=== PATIENT | female | born 1980 | race African-American/Black ===

== ENCOUNTER 2024-12-13 01:18 | Emergency (ER) | payer MEDICAID ==
[~2024-12-13] VITALS: Ht 175.3 cm; Wt 80.0 kg
[2024-12-13 01:29] VITALS: BP 155/100; PULSE 93; RESP 18; TEMP 36.8; O2SAT 100
[2024-12-13 02:41] LABS: HEMOGLOBIN. 9.7 g/dL (12.0-16.0); MEAN CORPUSCULAR HEMOGLOBIN 21.9 pg (28.0-32.0); MEAN CORPUSCULAR HGB CONC 30.4 g/dL (31.0-37.0); MEAN PLATELET VOLUME 8.8 fl (7.4-10.4); PLATELET 204 x1000/uL (130-400); RED BLOOD CELL COUNT 4.45 mill/uL (4.2-5.4); RED CELL DISTRIBUTION WIDTH 24.4 % (11.6-14.6); WHITE BLOOD COUNT 8.2 x1000/uL (4.5-11.0)
[2024-12-13 02:42] LABS: DIFFERENTIAL COMMENT 1
[2024-12-13 03:10] LABS: CHLORIDE 102 mEq/L (98-107); POTASSIUM 3.7 mEq/L (3.5-5.1); SODIUM 140 mEq/L (136-145)
[2024-12-13 03:11] LABS: CALCIUM 9.5 mg/dL (8.7-10.4); CARBON DIOXIDE 29 mEq/L (21-32)
[2024-12-13 03:16] LABS: CREATININE 0.6 mg/dL (0.6-1.0); GLUCOSE 103 mg/dL (70-105); UREA NITROGEN BLOOD 14 mg/dL (9-23)
[2024-12-13 03:18] LABS: ALANINE AMINOTRANSFERASE 20 IU/L (10-49); ALBUMIN 4.3 g/dL (3.2-4.8); ASPARTATE AMINOTRANSFERASE 31 IU/L (<34); BILIRUBIN TOTAL 0.3 mg/dL (0.1-1.0); PROTEIN TOTAL 7.4 g/dL (6.0-8.3)
[2024-12-13 03:28] LABS: HCG SCREEN NEGATIVE
[2024-12-13] MEDS: MAGNESIUM/ALUMINUM HYDROXIDE/SIMETHICONE 30ML UDC PO STA (03:35)
[2024-12-13] MEDS: FAMOTIDINE 20MG TABLET PO ONE (03:36)
[2024-12-13] MEDS: ONDANSETRON 4MG ODT PO STA (03:36)
[2024-12-13] MEDS: TRAMADOL 50MG TABLET PO ONE (03:36)
[2024-12-13 04:00] LABS: BILIRUBIN DIRECT < 0.1 mg/dL (<=3.0)
[2024-12-13] MEDS ORDERED: FAMO-135 MT (04:08)
[2024-12-13] MEDS: HYDROCODONE/ACETAMINOPHEN 5/325MG TABLET PO ONE (04:59)
[2024-12-13 06:19] LABS: CLARITY URINE TURBID (CLEAR); COLOR URINE YELLOW (YELLOW); GLUCOSE URINE NEGATIVE (NEGATIVE); KETONES URINE NEGATIVE (NEGATIVE); LEUKOCYTE ESTERASE URINE NEGATIVE (NEGATIVE); NITRITE URINE NEGATIVE (NEGATIVE); OCCULT BLOOD URINE NEGATIVE (NEGATIVE); PH URINE 7.5 (4.5-8.0); PROTEIN URINE TRACE (NEGATIVE); SPECIFIC GRAVITY URINE 1.026 (1.005-1.030); UROBILINOGEN URINE 0.2 E.U./dL (0.2-1.0)
[2024-12-13 07:06] LABS: BACTERIA URINE 1+; RBC URINE 0-2 /hpf (0-2); SQUAMOUS EPITHELIAL CELL URINE 1+ /lpf (RARE/1+); YEAST URINE NONE SEEN
[2024-12-13 07:16] LABS: PLATELET ESTIMATE NORMAL
== END 2024-12-13 05:07 | disposition home or self-care (01) ==
LOC: ER 01:18
DX: K27.9 Peptic ulcer, site unspecified, unspecified as acute or chronic, without hemorrhage or perforation (principal); I10 Essential (primary) hypertension; Z87.11 Personal history of peptic ulcer disease
CPT/HCPCS: 99284; 80076; 80048; 81003; 84703; 83690; 85025; 36415; Q0162